=== PATIENT | female | born 1945 | race Caucasian/White ===

== ENCOUNTER 2016-11-27 09:44 | Emergency (ER) | payer OTHER ==
[~2016-11-27] VITALS: Ht 167.6 cm; Wt 59.0 kg
[~2016-11-27 09:44] MED LIST: ALLERGY RELIEF60 MG PO; HYDROCHLOROTHIA25 M2 PO; SIMVASTATIN10 MG PO; VITAMIN C500 M1 PO; VITAMIN D2000 UNIT PO
[2016-11-27] MEDS ORDERED: CEFUROXIME250 MG PO (09:55)
[2016-11-27] MEDS ORDERED: HYDROCHLOROTH12.5 M1 PO (09:56)
[2016-11-27] MEDS ORDERED: TESSALON PERLE100 MG PO (09:57)
[2016-11-27 11:58] VITALS: BP 129/77
== END 2016-11-27 11:59 | disposition home or self-care (01) ==
LOC: ER 09:44
DX: S32.048A Other fracture of fourth lumbar vertebra, initial encounter for closed fracture (principal); K58.8 Other irritable bowel syndrome; E78.5 Hyperlipidemia, unspecified; G43.809 Other migraine, not intractable, without status migrainosus; M81.8 Other osteoporosis without current pathological fracture; Z88.8 Allergy status to other drugs, medicaments and biological substances; Z88.2 Allergy status to sulfonamides; Z88.6 Allergy status to analgesic agent; W19.XXXA Unspecified fall, initial encounter; Y93.89 Activity, other specified; Y92.89 Other specified places as the place of occurrence of the external cause; Y99.8 Other external cause status

== ENCOUNTER 2018-05-22 09:22 | Emergency (ER) | payer OTHER ==
[~2018-05-22] VITALS: Ht 165.1 cm; Wt 56.7 kg
[~2018-05-22 09:22] MED LIST changes: +CEFUROXIME250 MG PO; +HYDROCHLOROTH12.5 M1 PO; +TESSALON PERLE100 MG PO
[2018-05-22 09:24] VITALS: BP 151/80
== END 2018-05-22 11:25 | disposition home or self-care (01) ==
LOC: ER 09:22
DX: S61.411A Laceration without foreign body of right hand, initial encounter (principal); E78.5 Hyperlipidemia, unspecified; G43.909 Migraine, unspecified, not intractable, without status migrainosus; M19.90 Unspecified osteoarthritis, unspecified site; Z88.5 Allergy status to narcotic agent; Z88.2 Allergy status to sulfonamides; W01.0XXA Fall on same level from slipping, tripping and stumbling without subsequent striking against object, initial encounter; Y93.89 Activity, other specified; Y92.89 Other specified places as the place of occurrence of the external cause; Y99.8 Other external cause status

== ENCOUNTER 2019-05-25 15:43 | Emergency (ER) | payer OTHER ==
[~2019-05-25] VITALS: Ht 165.1 cm; Wt 54.9 kg
[2019-05-25 20:37] VITALS: BP 141/69
== END 2019-05-25 20:38 | disposition home or self-care (01) ==
LOC: ER 15:43
DX: S16.1XXA Strain of muscle, fascia and tendon at neck level, initial encounter (principal); R07.89 Other chest pain; M54.5 Low back pain; E78.5 Hyperlipidemia, unspecified; G43.909 Migraine, unspecified, not intractable, without status migrainosus; M19.90 Unspecified osteoarthritis, unspecified site; Z98.51 Tubal ligation status; M81.0 Age-related osteoporosis without current pathological fracture; Z88.2 Allergy status to sulfonamides; Z88.8 Allergy status to other drugs, medicaments and biological substances; Z88.6 Allergy status to analgesic agent; W01.0XXA Fall on same level from slipping, tripping and stumbling without subsequent striking against object, initial encounter; Y93.89 Activity, other specified; Y92.89 Other specified places as the place of occurrence of the external cause; Y99.8 Other external cause status

== ENCOUNTER 2021-03-12 05:14 | Emergency (ER) | payer OTHER ==
[~2021-03-12] VITALS: Ht 165.1 cm; Wt 55.3 kg
[2021-03-12] MEDS ORDERED: AZELASTINE137 MCG/0. INH (05:34)
[2021-03-12] MEDS ORDERED: HYDROCHLOROTH12.5 M2 PO (05:34)
[2021-03-12] MEDS ORDERED: ZOFRAN ODT4 MG PO (06:01)
[2021-03-12 06:31] VITALS: BP 144/65
== END 2021-03-12 06:31 | disposition home or self-care (01) ==
LOC: ER 05:14
DX: S00.03XA Contusion of scalp, initial encounter (principal); E78.5 Hyperlipidemia, unspecified; Z79.899 Other long term (current) drug therapy; Z88.2 Allergy status to sulfonamides; Z88.8 Allergy status to other drugs, medicaments and biological substances; W22.8XXA Striking against or struck by other objects, initial encounter; Y93.89 Activity, other specified; Y92.89 Other specified places as the place of occurrence of the external cause; Y99.8 Other external cause status